=== PATIENT | female | born 1935 | race Caucasian/White ===

== ENCOUNTER → 2018-06-02 | Outpatient (CLI) | payer MEDICARE, OTHER | END | disposition home or self-care (01) | LOC: CVU 14:10 | PROVIDERS: ATTEND Family Medicine | DX: I87.2 Venous insufficiency (chronic) (peripheral) (principal) | CPT/HCPCS: 93970 ==

== ENCOUNTER → 2018-07-29 | Outpatient (CLI) | payer OTHER | END | disposition home or self-care (01) | LOC: CFH 08:19 | PROVIDERS: ATTEND Internal Medicine | DX: J98.11 Atelectasis (principal); N28.1 Cyst of kidney, acquired; J84.10 Pulmonary fibrosis, unspecified; J98.4 Other disorders of lung; M47.894 Other spondylosis, thoracic region; I70.0 Atherosclerosis of aorta | CPT/HCPCS: 71250 ==